=== PATIENT | male | born 1970 | race American Indian/Alaskan Native ===

== ENCOUNTER 2018-03-05 18:34 | Emergency (ER) | payer SELFPAY ==
--- NOTE | 2018-03-05 22:12 | Emergency Department Report ---
ED General Adult HPI - General Chief complaint: Pain General Stated complaint: RT/LFT KNEE PAIN Time Seen by Provider: 03/05/18 21:18 Source: patient Mode of arrival: Ambulatory Limitations: No Limitations - History of Present Illness Initial comments: Patient is a 47-year-old -Citizen Of [place] male who presents with bilateral knee pain and chronic low back pain the past 2 years has exacerbated this week to 5/ 10 patient works as a nurse manager states flare up this week there is no numbness no tingling or loss of decrease in bowel or bladder function patient remains Gomez to baseline per patient pain is exacerbated by prolonged standing walking carrying heavy loads pain is relieved by offloading and rest patient presents to the lower has a PCP because he has no insurance requesting pain control. there has been no new injury fall or trauma . Onset/Timin -: year(s), unknown (flare for past 5 days ) Location: back, lower extremity Radiation: non-radiation Severity scale (0 -10): 5 Quality: aching Consistency: intermittent Improves with: rest Worsens with: movement Associated Symptoms: denies: confusion, chest pain, cough, diaphoresis, fever/ chills, headaches, loss of appetite, malaise, nausea/vomiting, rash, seizure, shortness of breath, syncope, weakness Treatments Prior to Arrival: none - Related Data Home Medications Medication Instructions Recorded Confirmed Last Taken Lisinopril [Zestril] 10 mg PO QAM 03/05/18 03/05/18 03/05/18 Metformin HCl 2,000 mg PO QAM 03/05/18 03/05/18 03/05/18 Previous Rx's Medication Instructions Recorded Last Taken Type Cyclobenzaprine [Flexeril] 10 mg PO TID PRN #30 tablet 03/05/18 Unknown Rx Menthol/Camphor [[place] 18.9 gm TP TID PRN #1 tube 03/05/18 Unknown Rx Ointment] Naproxen 500 mg PO BID PRN #30 tablet 03/05/18 Unknown Rx Allergies Allergy/AdvReac Type Severity Reaction Status Date / Time No Known Allergies Allergy Unverified 03/05/18 19:20 ED Review of Systems ROS: Stated complaint: RT/LFT KNEE PAIN Other details as noted in HPI Constitutional: denies: chills, fever Eyes: denies: eye pain, eye discharge, vision change ENT: denies: ear pain, throat pain Respiratory: denies: cough, shortness of breath, wheezing Cardiovascular: denies: chest pain, palpitations Endocrine: no symptoms reported Gastrointestinal: denies: abdominal pain, nausea, diarrhea Genitourinary: denies: urgency, dysuria Musculoskeletal: back pain, arthralgia, myalgia. denies: joint swelling Skin: denies: rash, lesions Neurological: denies: headache, weakness, numbness, paresthesias, vertigo Psychiatric: denies: anxiety, depression Hematological/Lymphatic: denies: easy bleeding, easy bruising ED Past Medical Hx - Medications Home Medications: Home Medications Medication Instructions Recorded Confirmed Last Taken Type Cyclobenzaprine [Flexeril] 10 mg PO TID PRN #30 tablet 03/05/18 Unknown Rx Lisinopril [Zestril] 10 mg PO QAM 03/05/18 03/05/18 03/05/18 History Menthol/Camphor [[place] 18.9 gm TP TID PRN #1 tube 03/05/18 Unknown Rx Ointment] Metformin HCl 2,000 mg PO QAM 03/05/18 03/05/18 03/05/18 History Naproxen 500 mg PO BID PRN #30 tablet 03/05/18 Unknown Rx ED Physical Exam - General Limitations: No Limitations General appearance: alert, in no apparent distress - Head Head exam: Present: atraumatic, normocephalic - Eye Eye exam: Present: normal appearance - ENT ENT exam: Present: mucous membranes moist - Neck Neck exam: Present: normal inspection, full ROM. Absent: tenderness, lymphadenopathy, thyromegaly - Respiratory Respiratory exam: Present: normal lung sounds bilaterally. Absent: respiratory distress, wheezes, stridor, chest wall tenderness - Cardiovascular Cardiovascular Exam: Present: regular rate, normal rhythm, normal heart sounds. Absent: systolic murmur, diastolic murmur, rubs, gallop - GI/Abdominal GI/Abdominal exam: Present: soft, normal bowel sounds. Absent: bruit, hernia - Rectal Rectal exam: Present: deferred - Extremities Exam Extremities exam: Present: normal inspection, full ROM, normal capillary refill. Absent: tenderness, joint swelling, calf tenderness - Expanded Lower Extremity Exam Right Knee exam: Present: normal inspection, full ROM, pain w/ pronation/supination, pain/laxity with valgus, pain/laxity with varus, full knee extension. Absent: tenderness, swelling, abrasion, laceration, ecchymosis, deformity, crepidus, dislocation, erythema, effusion, posterior draw sign Lower Leg exam: Present: normal inspection, full ROM Ankle exam: Present: normal inspection, full ROM Foot/Toe exam: Present: normal inspection, full ROM Neuro vascular tendon exam: Present: no vascular compromise. Absent: pulse deficit, abnormal cap refill, motor deficit, sensory deficit, tendon deficit, extremity cold to touch, pallor, abnormal 2-point discrimination, decreased fine /light touch, foot drop, peroneal nerve deficit, significant pain with passive ROM of distal joint Gait: Positive: observed and normal (Y) Left Knee exam: Present: normal inspection, full ROM, pain w/ pronation/supination, pain/laxity with valgus, pain/laxity with varus. Absent: tenderness, swelling, abrasion, laceration, ecchymosis, deformity, crepidus, dislocation, erythema, effusion, posterior draw sign, full knee extension Lower Leg exam: Present: normal inspection, full ROM Ankle exam: Present: normal inspection, full ROM Foot/Toe exam: Present: normal inspection, full ROM Neuro vascular tendon exam: Present: no vascular compromise. Absent: pulse deficit, abnormal cap refill, motor deficit, sensory deficit, tendon deficit, extremity cold to touch, pallor, abnormal 2-point discrimination, decreased fine /light touch, foot drop, peroneal nerve deficit, significant pain with passive ROM of distal joint Gait: Positive: observed and normal - Back Exam Back exam: Present: tenderness, muscle spasm, paraspinal tenderness. Absent: full ROM, CVA tenderness (R), CVA tenderness (L), vertebral tenderness, rash noted - Expanded Back Exam Expanded Back exam: Absent: saddle anesthesia Back exam: Sciatic Notch Tenderness: Right, Left, Positive Straight Leg Raise: Left, Negative Straight Leg Raising: Right - Neurological Exam Neurological exam: Present: alert, oriented X3, CN II-XII intact, normal gait, reflexes normal - Expanded Neurological Exam Expanded Patient oriented to: Present: person, place, time Speech: Present: fluid speech Cranial nerves: EOM's Intact: Normal, Gag Reflex: Normal, Tongue Deviation: Normal, Nystagmus: Normal, Facial Sensation: Normal Cerebellar function: Finger to Nose: Normal, Heel to Rodrigues: Normal, Romberg: Normal Upper motor neuron: Severiano Neglect: Normal, Pronator Drift: Normal, Babinski Sign : Normal, Sensory Extinction: Normal Sensory exam: Upper Extremity Light Touch: Normal, Upper Extremity Pin Prick: Normal, Upper Extremity Temperature: Normal, UE 2 Point Discrimination: Normal, Lower Extremity Light Touch: Normal, Lower Extremity Pin Prick: Normal, Lower Extremity Temperature: Normal, LE 2 Point Discrimination: Normal Motor strength exam: RUE: 5, LUE: 5, RLE: 5, LLE: 5 DTR: bicep (R): 2+, bicep (L): 2+, tricep (R): 2+, tricep (L): 2+, knee (R): 2+ , knee (L): 2+, ankle (R): 2+, ankle (L): 2+ Best Eye Response ([place]): (4) open spontaneously Best Motor Response ([place]): (6) obeys commands Best Verbal Response (Colt): (5) oriented Colt Total: 15 - Psychiatric Psychiatric exam: Present: normal affect, normal mood - Skin Skin exam: Present: warm, dry, intact, normal color. Absent: rash ED Course Vital Signs 03/05/18 19:16 Temperature 98.7 F Pulse Rate 79 Respiratory 18 Rate Blood Pressure 155/98 O2 Sat by Pulse 98 Oximetry ED Medical Decision Making - Medical Decision Making This is chronic low back and bilateral knee pain history of arthralgia plan naproxen Flexeril patient will follow up with PCP in 2-3 days pain is improved after Toradol IM and no dural neuro deficits no deformity no new fall or injury or trauma patient to DC to home in stable condition at this time patient verbalizes understanding and agreement with same patient is ambulatory to home with steady gait at this time Critical care attestation.: If time is entered above; I have spent that time in minutes in the direct care of this critically ill patient, excluding procedure time. ED Disposition Clinical Impression: Low back pain Qualifiers: Chronicity: chronic Back pain laterality: bilateral Sciatica presence: with sciatica Sciatica laterality: sciatica of left side Qualified Code(s): M54.42 - Lumbago with sciatica, left side; G89.29 - Other chronic pain Bilateral knee pain Qualifiers: Chronicity: chronic Qualified Code(s): M25.561 - Pain in right knee; M25.562 - Pain in left knee; G89.29 - Other chronic pain Arthralgia Qualifiers: Joint pain location: knee Laterality: bilateral Qualified Code(s): M25.561 - Pain in right knee; M25.562 - Pain in left knee Disposition: TO HOME OR SELFCARE Is pt being admited?: No Does the pt Need Aspirin: No Condition: Good Instructions: Arthralgia (ED), Low Back Strain (ED), Knee Pain (ED), Knee Exercises (GEN) Prescriptions: Cyclobenzaprine [Flexeril] 10 mg PO TID PRN #30 tablet PRN Reason: Muscle Spasm Menthol/Camphor [[place] Ointment] 18.9 gm TP TID PRN #1 tube PRN Reason: pain Naproxen 500 mg PO BID PRN #30 tablet PRN Reason: pain Referrals: [facility] [Outside] - 3-5 Days Forms: Work/School Release Form(ED) Time of Disposition: 22:25
[2018-03-05] MEDS ORDERED: TORADOL IM ONE (22:14)
[2018-03-05 22:49] VITALS: BP 136/74
== END 2018-03-05 22:47 | disposition home or self-care (01) ==
LOC: ED 18:34
DX: M54.42 Lumbago with sciatica, left side (principal); M25.561 Pain in right knee; M25.562 Pain in left knee; G89.29 Other chronic pain
CPT/HCPCS: 96372; 99282; J1885